=== PATIENT | male | born 1945 | race Two or more races ===

== ENCOUNTER 2024-10-12 07:06 | Outpatient (CLI) | payer OTHER | END 2024-10-12 07:07 | disposition home or self-care (01) | LOC: NUCLEAR 07:06 | PROVIDERS: ATTEND Internal Medicine | DX: I20.9 Angina pectoris, unspecified (principal) | CPT/HCPCS: 78452; 93017; A9500 ==

== ENCOUNTER 2025-08-30 07:28 | Outpatient (CLI) | payer OTHER | END 2025-08-30 07:30 | disposition home or self-care (01) | LOC: SONOGRAMA 07:28 | PROVIDERS: ATTEND Internal Medicine Cardiovascular Disease | DX: R10.9 Unspecified abdominal pain (principal) ==

== ENCOUNTER 2025-08-30 08:32 | Outpatient (CLI) | payer OTHER ==
[2025-08-30 09:59] LABS: BASO % 0.4 % (0.1-1.2); EOS # 0.30 (0.04-0.54); EOS % 3.9 % (0.7-7.0); LYMPH # 1.77 (1.18-3.74); LYMPH % 23.3 % (19.3-53.1); MEAN PLATELET VOLUME 9.60 fl (9.4-12.4); MONO # 0.67 (0.24-0.82); MONO % 8.8 % (4.7-12.5); NEUT # 4.81 (1.56-6.13); NEUT % 63.2 % (34.0-71.1); RED CELL DISTRIBUTION WIDTH 13.4 % (11.6-14.4)
[2025-08-30 10:17] LABS: URINE APPEARANCE Clear; URINE BILIRRUBIN Negative (NEGATIVE); URINE BLOOD Negative; URINE COLOR Yellow; URINE GLUCOSE Negative (NEGATIVE); URINE KETONE Negative (NEGATIVE); URINE LEUKOCYTE Negative; URINE NITRATE Negative; URINE PROTEIN Negative (NEGATIVE); URINE UROBILINOGEN 0.2 E.U./dl
[2025-08-30 10:19] LABS: URINE BACTERIA 26.3 uL (0.0-1933); URINE EPITHELIAL CELLS 3.5 uL (0.0-38.8); URINE RBC 16.7 uL (0.0-20.8); URINE WBC 2.1 uL (0.0-23.2)
[2025-08-30 10:40] LABS: URINE CAST 0.42 uL (0.0-1.40)
[2025-08-30 10:53] LABS: BUN CREA RATIO 18.0 (7.0-25.0); CREATININE SERUM 1.24 mg/dL (0.70-1.30); GFR 56.24; GLUCOSE FASTING 101.0 mg/dL (65-100); OSMOLALITY SERUM 292.0 MOSM/KG (275-295)
[2025-08-30 10:55] LABS: PROSTATIC SPECIFIC ANTIGEN 97.5 NG/ML (0.010-4.00)
== END 2025-08-30 08:36 | disposition home or self-care (01) ==
LOC: LAB 08:32
PROVIDERS: ATTEND Internal Medicine Cardiovascular Disease
DX: E11.9 Type 2 diabetes mellitus without complications (principal); I10 Essential (primary) hypertension; N40.0 Benign prostatic hyperplasia without lower urinary tract symptoms; N39.0 Urinary tract infection, site not specified